=== PATIENT | male | born 1950 | race Caucasian/White ===

== ENCOUNTER → 2020-01-31 | Outpatient (CLI) | payer OTHER | LOC: COL.RAD 13:38 | DX: S12.500A Unspecified displaced fracture of sixth cervical vertebra, initial encounter for closed fracture (principal); S12.600A Unspecified displaced fracture of seventh cervical vertebra, initial encounter for closed fracture; M54.12 Radiculopathy, cervical region ==

== ENCOUNTER → 2020-03-02 | Outpatient (CLI) | payer OTHER | LOC: COL.RAD 09:08 | DX: M43.12 Spondylolisthesis, cervical region (principal); M54.12 Radiculopathy, cervical region ==

== ENCOUNTER 2022-07-02 17:33 | Emergency (ER) | payer OTHER ==
[~2022-07-02] VITALS: Ht 167.6 cm; Wt 61.4 kg
[2022-07-02 18:04] VITALS: TEMP 97.7
[2022-07-02 22:33] VITALS: BP 132/70; PULSE 70
== END 2022-07-02 22:33 | disposition home or self-care (01) ==
LOC: COL.ER 17:33
DX: S09.90XA Unspecified injury of head, initial encounter (principal); S00.81XA Abrasion of other part of head, initial encounter; Z28.310 Unvaccinated for COVID-19; W01.0XXA Fall on same level from slipping, tripping and stumbling without subsequent striking against object, initial encounter; Y93.01 Activity, walking, marching and hiking